=== PATIENT | male | born 1960 | race Caucasian/White ===

== ENCOUNTER → 2020-04-08 15:48 | Outpatient (BNVA) | payer OTHER, SELFPAY | PROVIDERS: Visit Provider Urology | DX: Z76.89 Persons encountering health services in other specified circumstances (principal) ==

== ENCOUNTER → 2021-02-22 09:29 | Outpatient (BNVA) | payer OTHER, SELFPAY | PROVIDERS: PCP Internal Medicine; Visit Provider Urology ==

== ENCOUNTER → 2021-06-09 08:43 | Outpatient (BNVA) | payer OTHER, SELFPAY | PROVIDERS: PCP Internal Medicine; Visit Provider Urology ==

== ENCOUNTER → 2021-08-23 13:07 | Outpatient (BNVA) | payer OTHER, SELFPAY | PROVIDERS: PCP Internal Medicine; Visit Provider Urology | DX: Z13.89 Encounter for screening for other disorder (principal) ==

== ENCOUNTER 2022-02-15 09:56 | Outpatient (REF) | payer OTHER, SELFPAY ==
--- NOTE | ~2022-02-15 | US_ITS ---
EXAMINATION: US RETROPERITONEAL LIMITED (RENAL ONLY) CLINICAL INFORMATION: Calculus of kidney. COMPARISON: None TECHNIQUE: Real-time imaging of the kidneys. FINDINGS: RIGHT KIDNEY: 10.5 x 5.0 x 5.4 cm (SAG x AP x TRV). The kidney is normal in size, contour, and echogenicity. Renal cortical thickness is normal. No calculi or focal parenchymal lesions. No hydronephrosis. LEFT KIDNEY: 9.9 x 5.1 x 5.2 cm (SAG x AP x TRV). The kidney is normal in size, contour, and echogenicity. Renal cortical thickness is normal. No calculi or focal parenchymal lesions. No hydronephrosis. US/US renal BI IMPRESSION: No significant sonographic abnormality.
== END 2022-02-15 09:57 | disposition home or self-care (01) ==
LOC: HO.HMGCX 09:56
PROVIDERS: PCP Internal Medicine; Visit Provider Urology
DX: N20.0 Calculus of kidney (principal)
CPT/HCPCS: 76775

== ENCOUNTER 2025-02-23 08:40 | Outpatient (AMB) | payer OTHER, MEDICAID, SELFPAY ==
[2025-02-23 09:00] VITALS: BP 183/86; PULSE 69; RESP 18; TEMP 36.6; O2SAT 97; BMI 24.1
--- NOTE | 2025-02-23 09:00 | A.OFFPC_ITS ---
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 Dependency Case Manager Required: No Accompanied by: Self / Same As Patient Allergies levofloxacin (LEVOFLOXACIN) Allergy (Mild, Verified 02/23/25 09:02) hives Penicillins (PENICILLINS) Allergy (Mild, Verified 02/23/25 09:02) RASH Sulfa (Sulfonamide Antibiotics) (SULFA (SULFONAMIDE ANTIBIOTICS)) Allergy (Mild, Verified 02/23/25 09:02) SKIN PEELS Medication List - Last Reconciled 02/23/25 by Seth Sargent MD Tobacco use date assessed: 02/23/25 Dental Screening Dental Screen Date: 02/23/25 HPI HPI Comments History of Present Illness0 Details History of Present Illness The patient is a 64-year-old male presenting for a physical examination. Health Maintenance: The patient is presenting for a physical after about a year and a half since his last medical visit and blood work. He has never had a colonoscopy for colon cancer screening and expresses fear of the procedure. He denies any family history of colon cancer. Tobacco Use Disorder: The patient has been smoking about one pack of cigarettes per day since he was 14 or 15 years old. His also smokes, which he notes makes quitting difficult. History of Hyperlipidemia: The patient reports a history of cholesterol problems many years ago, but his current status is unknown. History of Nephrolithiasis: The patient has a history of a kidney stone, which required a Sequeira catheter. He eventually passed the stone at home. He previously underwent a painful cystoscopy while awake. A urologist has seen a very small stone and recommended another procedure due to the patient's back pain complaints, but the patient is hesitant. Benign Prostatic Hyperplasia: The patient reports having a weak urinary stream. Back pain: The patient reports localized back pain that does not radiate. He has a remote history of falling from a balcony many years ago. Surgical History: - Sequeira catheter placement for a kidney stone - Cystoscopy Medications: The patient reports he is not currently taking any medications, including previously listed alfuzosin and omeprazole. Social History: - Tobacco Use: The patient smokes approx imately one pack of cigarettes per day and has been smoking since age 14 or 15. - Substance Use: The patient reports usi ng marijuana for the past year. 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 Family History: - The patient denies a family history of colon cancer. Diagnostic Results: - Vitals: Blood pressure was 183/86 mmHg . Past Medical History - History of hyperlipidemia - History of fall from a balcony - History of nephrolithiasis - Benign prostatic hyperplasia Health Maintenance - The patient has not seen a doctor or h ad blood work in approximately one and a half years. - Colon cancer screening was discussed; the patient has never had a colonoscopy and opted for a Cologuard test. - Smoking cessation was discussed, with options such as patches and gum offered for when the patient is ready to quit. - Lab work was ordered for screening, in cluding a lipid panel, B12, folate, vitamin D, HIV, hepatitis B, and hepatitis C. [facility] Medical History (Updated 02/23/25 @ 09:30 by Seth Sargent MD) Hyperlipidemia Tobacco use disorder Bladder outlet obstruction Erectile dysfunction due to arterial insufficiency Urethral stricture Surgical History History of surgery Social History Household Members: Spouse and Children Housing: House Alcohol intake: current Patient Tobacco Use Status: Current everyday Tobacco user Cigarettes Per Day: 20 Years Smoked: 45 e-Cigarette/Vaping Use: Never Used Cognitive needs: No Hearing needs: No Vision needs: No Questionnaire AUDIT C Alcohol Use Questionnaire (AUDIT-C) 1. How often do you have a drink containing alcohol?: Monthly or less 2. How many drinks containing alcohol do you have on a typical day when you are drinking?: 1 or 2 3. How often do you have six or more drinks on one occasion?: Never Total Score: 1 Review of Systems Narrative Review of Systems - Genitourinary: Reports a weak urinary stream. - Gastrointestinal: Reports normal bowel movements without pain. - Musculoskeletal: Reports localized back pain. - Constitutional/Neurological: Reports good sleep. 10-point ROS reviewed and negative except as noted in HPI Physical exam (Primary Care) Vital Signs: Last Vital Signs Temp 97.8 F 02/23/25 09:00 Pulse 69 02/23/25 09:00 Resp 18 02/23/25 09:00 BP 183/86 H 02/23/25 09:00 Pulse Ox 97 02/23/25 09:00 Oxygen Delivery Method Room Air 02/23/25 09:00 BMI result Body Mass Index 24.1 Tobacco/Smoking Status: Tobacco use Status Tobacco use date assessed 02/23/25 02/23/25 09:03 Patient Tobacco Use Status Current everyday Tobacco 02/23/25 09:01 e-Cigarette/Vaping Use Never Used 02/23/25 09:03 Narrative Physical Exam General: Well-appearing, in no acute distress. Vital signs: Blood pressure is elevated at 183/86. HEENT: Normocephalic, atraumatic. PERRLA, EOMI. Conjunctiva clear, sclera anicteric. Oropharynx clear, mucous membranes moist. TMs intact bilaterally. Neck: Supple, no lymphadenopathy, no thyromegaly, no JVD or carotid bruits. Cardiovascular: RRR, normal S1/S2, no murmurs, rubs, or gallops. Peripheral pulses 2+ and symmetric. No edema. Respiratory: Lungs clear to auscultation bilaterally, no wheezes, rales, or rhonchi. Normal effort. Abdomen: Soft, non-tender, non-distended. Normoactive bowel sounds. No hepatosplenomegaly, no masses. MSK: Full range of motion, no joint swelling or deformity. Normal gait. Skin: Warm, dry, intact. No rashes, lesions, or pallor. Neuro: Alert and oriented x3. Cranial nerves II-XII intact. Strength 5/5 throughout. Sensation intact. Reflexes 2+ symmetric. Normal coordination and gait. Psych: Appropriate mood and affect. Normal judgment and insight. Coding Level of Care Code New Pt Level 4 (76258) Diagnoses Nephrolithiasis N20.0 BPH w urinary obs/LUTS N40.1; N13.8 Tobacco use disorder F17.200 Hyperlipidemia E78.5 Elevated blood pressure reading R03.0 Back pain M54.9 Assessment & Plan Assessment & Plan (1) Nephrolithiasis: Code(s): N20.0 - Calculus of kidney Category: Medical (2) BPH w urinary obs/LUTS: Code(s): N40.1 - Benign prostatic hyperplasia with lower urinary tract symptoms; N13.8 - Other obstructive and reflux uropathy Category: Medical (3) Tobacco use disorder: Code(s): F17.200 - Nicotine dependence, unspecified, uncomplicated Category: Medical (4) Hyperlipidemia: Code(s): E78.5 - Hyperlipidemia, unspecified Category: Medical (5) Elevated blood pressure reading: Code(s): R03.0 - Elevated blood-pressure reading, without diagnosis of hypertension (6) Back pain: Code(s): M54.9 - Dorsalgia, unspecified Plan Consent The patient provided verbal consent to record the session. The alternatives for colon cancer screening, including an invasive colonoscopy and the non-invasive Cologuard test, were discussed. The process for the Cologuard test, which involves collecting a stool specimen at home and mailing it for analysis, was explained. The patient verbally consented to proceed with the Cologuard test. Patient was informed and verbally consented to the use of an ambient scribe for clinic note documentation during this visit. Plan 1. Adult Physical Examination - The patient will undergo comprehensive lab testing today, to include a lipid panel, vitamin B12, folate, vitamin D, HIV, hepatitis B, and hepatitis C. - A follow-up visit is scheduled in two weeks to review the results of all diagnostic tests and determine the next steps in management. 2. Tobacco Use Disorder - Smoking cessation was discussed, and the patient was informed that options like patches and gum are available when he is ready to quit. 3. Elevated Blood Pressure - The patient's blood pressure will be rechecked with proper technique. - Blood pressure will be monitored at the next visit, with consideration for sending the patient home with a monitoring kit if readings remain elevated. 4. Screening For Malignant Neoplasm Of Colon - A Cologuard test has been ordered for colon cancer screening. - The patient will receive the test kit in the mail, complete it at home, and send the specimen back for analysis. 5. Benign Prostatic Hyperplasia And History Of Nephrolithiasis - The patient has chosen to defer further urologic evaluation for his back pain and urinary symptoms until after the current primary care workup is completed. Discussion Notes I discussed with the patient the plan to establish care with a comprehensive physical exam and labs. I ordered a full panel of blood work to get an overall picture of his health, including lipids, vitamins, and infectious disease screening. We discussed options for colon cancer screening, and given his aversion to colonoscopy, I recommended and he agreed to the Cologuard test. I explained that the kit would be mailed to him and detailed the simple process for collecting and returning the specimen. Regarding his elevated blood pressure of 183/86, I noted that the measurement technique may have been incorrect and that we would recheck it and monitor it before considering treatment. I also addressed his long-standing smoking habit, offering support and treatment options like patches or gum for when he is ready to quit. We agreed to a follow- up visit in two weeks to review all results and decide on the next steps. Patient Instructions - Please proceed to the lab today to have your blood drawn for the ordered tests. - You will receive a Cologuard test kit in the mail. Follow the instructions to collect a stool sample and mail it back using the provided packaging. - Come back to the clinic in two weeks to discuss your lab results. - Let me know when you feel ready to quit smoking, and we can provide you with aids like patches or gum. - Your blood pressure was high today, but we will recheck it and monitor it at your next visit. Medical Decision Making The patient is a 64-year-old male presenting for an overdue physical examination to establish care. The approach is to obtain a comprehensive baseline of his health status through extensive lab work, including screening for hyp erlipidemia, vitamin deficiencies, and infectious diseases. His blood pressure was significantly elevated at 183/86 mmHg; however, given the potential for improper measurement technique, the plan is to re-measure and monitor before initiating antihypertensive therapy. For colorectal cancer screening, the patient has never been screened and expressed anxiety about an invasive colonoscopy. Therefore, Cologuard was offered as a suitable, non-invasive alternative, to which the patient agreed. The patient has a history of nephrolithiasis and related symptoms, with a pending urology evaluation, but he prefers to await the results of this primary care workup before proceeding, which is a reasonable course of action. Given his long-standing history of heavy tobacco use, smoking cessation was counseled as a critical component of his long-term health management. A follow-up in two weeks will allow for a thorough review of all results and formulation of a consolidated, long-term care plan. Total time spent caring for the patient today was 30 minutes. This includes time spent before the visit reviewing the chart, time spent documenting, and time spent reviewing laboratory results, diagnostic imaging, medications, performing a medically necessary evaluation, counseling on diagnoses, care coordination. Orders: Orders Comprehensive Met. Panel Today Z13.9 - Encounter for screening, unspecified Hemoglobin A1c Today Z13.9 - Encounter for screening, unspecified Hepatitis B Surface Antigen Today Z13.9 - Encounter for screening, unspecified Hepatitis C Antibody Today Z13.9 - Encounter for screening, unspecified HIV Ab/Ag Today Z13.9 - Encounter for screening, unspecified Magnesium Today Z13.9 - Encounter for screening, unspecified Vitamin D 1,25 dihydroxy Today Z13.9 - Encounter for screening, unspecified Complete Blood Count Auto Diff Today Z13.9 - Encounter for screening, unspecified Hepatitis B Surface Antibody Today Z13.9 - Encounter for screening, unspecified Lipid Panel Today Z13.9 - Encounter for screening, unspecified Microalbumin, Random (w Creat) Today Z13.9 - Encounter for screening, unspecified UA CC w/rflx Micro + Cult Today Z13.9 - Encounter for screening, unspecified Vitamin B12 and Folate Today Z13.9 - Encounter for screening, unspecified Referrals Cologuard Test Z12.11 - Encounter for screening for malignant neoplasm of colon, Z12.12 - Encounter for screening for malignant neoplasm of rectum
--- OUTSIDE RECORDS SUMMARY | 2025-02-23 09:06 | XMS_ITS ---
Author Name [facility] Organization Unknown Care Team Organization Name Specialty Phone Email Start Date End Da te [facility] Ryan Ku Primary Care 02/27/2022 12/09/19 24
--- OUTSIDE RECORDS SUMMARY | 2025-02-23 09:06 | XMS_ITS | Encounter Summary ---
Author Organization [facility] Address [address] [place] [address] Care Team Providers Care Osteology Teacher Name Role Phone Ryan Ku MD Primary Care Provider [phone] Encounter Details Date Type Department Care Team (Late st Contact Info) Description 01/11/[address] [facility] - Main Lab [address] [facility] [place] [id number] Taco Bravo MD [address] [facility] [address] [place] [address] Urinary tract infection, site not specified; Gross hematuria Social History Tobacco Use Types Packs/Day Years Used Date Smoking Tobacco: Every Day Cigarettes Smokeless Tobacco: Never Alcohol Use Standard Drinks/Week Comments Yes 0 (1 standard drink = 0.6 oz pur e alcohol) Sex and Gender Information Value Date Recorded Sex Assigned at Not on file Legal Sex Male 7:34 PM EST Gender Identity Not on file Sexual Orientation Not on file documented as of this encounter Plan of Treatment Not on file documented as of this encounter Procedures Procedure Name Priority Date/Time Associated Diagnosis Comments CULTURE URINE Routine 01/11/2025 11:15 AM EDT Urinary tract infection, site not specified Gross hematuria documented in this encounter Results * Culture urine (01/11/2025 11:15 AM EDT) Culture, Urine No growth 01/12/2025 10:29 AM EDT [facility] Urine Urine specimen obtained by clean catch procedure / Unknown Non-blood Collection / Unknown 01/11/2025 11:15 AM EDT 01/11/2025 1:52 PM EDT us Taco Bravo MD LAB MICROBIOLOGY - GENERAL ORDER NIVIA Final Result [facility] [address] [place] [address], documented in this encounter Visit Diagnoses Diagnosis Urinary tract infection, site not specified Gross hematuria documented in this encounter Care Teams Osteology Teacher Relationship Specialty Start Date End Date Ryan Ku MD [address] [place] [id number] PCP - General Internal Medicine 12/22/24 documented as of this encounter
--- OUTSIDE RECORDS SUMMARY | 2025-02-23 09:06 | XMS_ITS | Clinical Summary ---
[facility] Address [address] [place] [phone] Phone Care Team Providers Care Adult Care Provider Name Role Phone Ryan Ku MD Primary Care Provider [phone] Encounters Date Type Department Care Team Description 01/19/2025 Lab Requisition [facility] [address] [place] [address] Taco Bravo Gross hematuria 01/11/2025 Lab Requisition [facility] [address] [place] [address] Taco Bravo MD Urinary tract infection, site not specified; Gross hematuria from Last 3 Months Social History Tobacco Use Types Packs/Day Years Used Date Smoking Tobacco: Every Day Cigarettes Smokeless Tobacco: Never Alcohol Use Standard Drinks/Week Comments Yes 0 (1 standard drink = 0.6 oz pur e alcohol) Sex and Gender Information Value Date Recorded Sex Assigned at Not on file Legal Sex Male 7:34 PM EST Gender Identity Not on file Sexual Orientation Not on file Obstetrics History Last Filed Vital Signs Vital Sign Reading Time Taken Comments Blood Pressure 158/73 08/21/2023 9:05 AM EDT Pulse 64 08/21/2023 9:05 AM EDT Temperature - - Respiratory Rate - - Oxygen Saturation - - Inhaled Oxygen Concentration - - Weight - - Height - - Body Mass Index - - Plan of Treatment Health Maintenance Due Date Last Done Comments Colorectal Cancer Screening: Colonoscopy 1958 DTaP,Tdap,and Td Vaccines (1 - Tdap) 1977 Hepatitis A Vaccines (1 of 2 - Risk 2-dose series) 1977 Pneumococcal Vaccine: 50+ Ye ars (1 of 2 - PCV) 1977 Zoster Vaccines (1 of 2) 2008 Abdominal Aortic Aneurysm (A AA) Screen 03/31/2022 Cholesterol Screening (Lipid Panel) 03/31/2022 Hepatitis C Screening 03/31/2022 Medicare Annual Wellness Visit 03/31/2022 Social Influencers of Health Screening 03/31/2022 Falls Risk Assessment 07/24/2023 Depression Screening 04/22/2024 COVID-19 Vaccine (1 - 2023-2 5 season) 2024 Influenza Vaccine (#1) 2024 RSV Immunization Adult Patie nts (1 - 1-dose 75+ series) 2033 HIB Vaccines Aged Out No longer eligi ble based on patient's age to complete this topic HPV Vaccines Aged Out No longer eligi ble based on patient's age to complete this topic Hepatitis B Vaccines Aged Out No long er eligible based on patient's age to complete this topic IPV Vaccines Aged Out No longer eligi ble based on patient's age to complete this topic MMR Vaccines Aged Out No longer eligi ble based on patient's age to complete this topic Meningococcal ACWY Vaccine Aged Out N o longer eligible based on patient's age to complete this topic Meningococcal B Vaccine Aged Out No l onger eligible based on patient's age to complete this topic RSV Immunization Patients Un alexis 20 months Aged Out No longer eligible b ased on patient's age to complete this topic Varicella Vaccines Aged Out No longer eligible based on patient's age to complete this topic Procedures Procedure Name Priority Date/Time Associated Diagnosis Comments CULTURE URINE Routine 01/11/2025 11:15 AM EDT Urinary tract infection, site not specified Gross hematuria NON-GYNECOLOGIC CYTOLOGY Routine 01/11/2025 12:00 AM EDT Gross hematuria from Last 3 Months Results * Culture urine (01/11/2025 11:15 AM EDT) Culture, Urine No growth 01/12/2025 10:29 AM EDT [facility] Urine Urine specimen obtained by clean catch procedure / Unknown Non-blood Collection / Unknown 01/11/2025 11:15 AM EDT 01/11/2025 1:52 PM EDT us aTco Bravo MD LAB MICROBIOLOGY - GENERAL ORDER NIVIA Final Result [facility] [address] [place] [address], [place] [phone] * Non-gynecologic cytology (01/11/2025 12:00 AM EDT) Final Diagnosis A. Urine, Voided, [id number]: Negative for high grade urothelial carcinoma. Results of UroVysion fluorescence in situ hybridization (FISH) testing: CEP3: Normal CEP7: Normal CEP17: Normal LSI 9p21: Normal Interpretation: Normal profile Controls stained appropriately. Note: The results are intended as a screening device and should be interpreted in association with other clinical and pathological findings. 02/04/2025 4:09 PM EDT [facility] at 1609 EDT Specimen A Adequacy Satisfactory for evaluation 02/04/2025 4:09 PM T [facility] Clinical Information R31.0 Gross hematuria Urine Cytology/FISH (now) 02/04/2025 4:09 PM T [facility] Gross Description A. Urine, Voided, [id number]: Received one ThinPrep slide for cytology and one ThinPrep slide for UroVysion FISH 02/04/2025 4:09 PM T [facility] Disclaimer Unless otherwise specified, all tissue is 10% NB formalin fixed and paraffin embedded. Technical pathology services provided by [facility] at [address] [place] [address] [address], [place] [address] (CLIA #[id number]/Susie Enrique MD, Residence Leasing Agent) 02/04/2025 4:09 PM EDT [facility] Urine Urine specimen from urethra / Unknown 01/11/2025 01/19/2025 10:35 AM EDT us Taco Shelly LAB CYTOLOGY ORDERABLES Final Re sult [facility] [address] [place] [address], [place] [phone] from Last 3 Months Insurance MEDICAID - [place] MEDICARE AET[employer] Care Teams Adult Care Provider Relationship Specialty Start Date End Date Ryan Ku MD [address] [place] [address] PCP - General Internal Medicine 12/22/24
--- OUTSIDE RECORDS SUMMARY | 2025-02-23 09:06 | XMS_ITS | Encounter Summary ---
Author Organization [facility] Address [address] [place] [address] Care Team Providers Care Flow Match Sofa Cutter Name Role Phone Ryan Ku MD Primary Care Provider [phone] Encounter Details Date Type Department Care Team (Late st Contact Info) Description 01/19/2025 Lab Requisition [facility] - Main Lab [address] [place] [phone] Taco Bravo [address] [place], [place] [phone] Gross hematuria Social History Tobacco Use Types [...] Procedure Name Priority Date/Time Associated Diagnosis Comments NON-GYNECOLOGIC CYTOLOGY Routine 01/11/2025 12:00 AM EDT Gross hematuria documented in this encounter Results * Non-gynecologic cytology (01/11/2025 12:00 AM EDT) Final Diagnosis A. Urine, Voided, [id number]: Negative for high grade urothelial carcinoma. Results of UroVysion fluorescence in situ hybridization (FISH) testing: CEP3: Normal CEP7: Normal CEP17: Normal LSI 9p21: Normal Interpretation: Normal profile Controls stained appropriately. Note: The results are intended as a screening device and should be interpreted in association with other clinical and pathological findings. 02/04/2025 4:09 PM EDT [facility] at 1609 EDT Specimen A Adequacy Satisfactory for evaluation 02/04/2025 4:09 PM EDT [facility] Clinical Information R31.0 Gross hematuria Urine Cytology/FISH (now) 02/04/2025 4:09 PM EDT [facility] Gross Description A. Urine, Voided, [id number]: Received one ThinPrep slide for cytology and one ThinPrep slide for UroVysion FISH 02/04/2025 4:09 PM EDT [facility] Disclaimer Unless otherwise specified, all tissue is 10% NB formalin fixed and paraffin embedded. Technical pathology services provided by [facility] at [address], [place] [address] (CLIA #[id number]/Susie Enrique MD, Tetryl Nitrator Operator) 02/04/2025 4:09 PM EDT [facility] Urine Urine specimen from urethra / Unknown 01/11/2025 01/19/2025 10:35 AM EDT us Taco Bravo LAB CYTOLOGY ORDERABLES Final Re sult [facility] [address] [place] [address], documented in this encounter Visit Diagnoses Diagnosis Gross hematuria documented in this encounter Care Teams Flow Match Sofa Cutter Relationship Specialty Start Date End Date Ryan Ku MD [address] [place] [id number] PCP - General Internal Medicine 12/22/24 documented as of this encounter
[2025-02-23 09:32] VITALS: BP 180/85
[2025-02-23 09:34] VITALS: BP 180/85
== END 2025-02-23 09:33 | disposition home or self-care (01) ==
PROVIDERS: PCP Internal Medicine; Visit Provider Student in an Organized Health Care Education/Training Program
DX: N20.0 Calculus of kidney (principal); N40.1 Benign prostatic hyperplasia with lower urinary tract symptoms; N13.8 Other obstructive and reflux uropathy; F17.200 Nicotine dependence, unspecified, uncomplicated; E78.5 Hyperlipidemia, unspecified; R03.0 Elevated blood-pressure reading, without diagnosis of hypertension; M54.9 Dorsalgia, unspecified

== ENCOUNTER 2025-02-24 08:44 | Outpatient (REF) | payer OTHER, MEDICAID, SELFPAY ==
--- OUTSIDE RECORDS SUMMARY | 2025-02-24 09:13 | XMS_ITS | Encounter Summary ---
Author Organization [employer] Address [address] [place] [address] Care Team Providers Care Refinery Operator Helper Name Role Phone Ryan Ku MD Primary Care Provider [phone] Encounter Details Date Type Department Care Team (Late st Contact Info) Description 01/11/2025 Lab Requisition [facility] - Main Lab [address] [facility] [place] [phone] Taco Bravo MD [address] [facility] [address] [place] [address] Urinary tract infection, site not specified; Gross [...] Urine No growth 01/12/2025 10:29 AM EDT [facility] Urine Urine specimen obtained by clean catch procedure / Unknown Non-blood Collection / Unknown 01/11/2025 11:15 AM EDT 01/11/2025 1:52 PM EDT us Taco Bravo MD LAB MICROBIOLOGY - GENERAL ORDER NIVIA Final Result [facility] [address] [place] [address], documented in this encounter Visit Diagnoses Diagnosis Urinary tract infection, site not specified Gross hematuria documented in this encounter Care Teams Refinery Operator Helper Relationship Specialty Start Date End Date Ryan Ku MD [address] [place] [id number] PCP - General Internal Medicine 12/22/24 documented as of this encounter
--- OUTSIDE RECORDS SUMMARY | 2025-02-24 09:13 | XMS_ITS | Clinical Summary ---
Author Organization [facility] Address [address] [place] [phone] Phone Care Team Providers Care Master Ocean Yacht Name Role Phone Ryan Ku MD Primary Care Provider [phone] Encounters Date Type Department Care Team Description 01/19/2025 Lab Requisition [facility] [address] [place] [address] Taco Bravo Gross hematuria 01/11/2025 Lab Requisition [facility] [address] [place] [address] Taco Bravo MD Urinary tract [...] Urine No growth 01/12/2025 10:29 AM EDT [facility] Urine Urine specimen obtained by clean catch procedure / Unknown Non-blood Collection / Unknown 01/11/2025 11:15 AM EDT 01/11/2025 1:52 PM EDT us Taco Bravo MD LAB MICROBIOLOGY - GENERAL ORDER NIVIA Final Result [facility] [address] [place] [address], [place] [phone] * Non-gynecologic cytology (01/11/2025 12:00 AM EDT) Final Diagnosis A. Urine, Voided, [id number]: Negative for high grade urothelial carcinoma. Results of [employer] fluorescence in situ hybridization (FISH) testing: CEP3: Normal CEP7: Normal CEP17: Normal LSI 9p21: Normal Interpretation: Normal profile Controls stained appropriately. Note: The results are intended as a screening device and should be interpreted in association with other clinical and pathological findings. 02/04/2025 4:09 PM EDT [facility] at 1609 EDT Specimen A Adequacy Satisfactory for evaluation 02/04/2025 4:09 PM T [facility] Clinical Information R31.0 Gross hematuria Urine Cytology/FISH (now) 02/04/2025 4:09 PM T [facility] Gross Description A. Urine, Voided, [id number]: Received one ThinPrep slide for cytology and one ThinPrep slide for UroVysion FISH 02/04/2025 4:09 PM T [facility] Disclaimer Unless otherwise specified, all tissue is 10% NB formalin fixed and paraffin embedded. Technical pathology services provided by [facility] at [address] [place] [address] [address], [place] [address] (CLIA #[id number]/Susie Enrique MD, B2B Sales Professional) 02/04/2025 4:09 PM EDT [facility] Urine Urine specimen from urethra / Unknown 01/11/2025 01/19/2025 10:35 AM EDT us Taco Shelly LAB CYTOLOGY ORDERABLES Final Re sult [facility] ([facility] [place] [address] [place] [address], [place] [phone] from Last 3 Months Insurance MEDICAID - [place] MEDICARE AET[employer] Care Teams Master Ocean Yacht Relationship Specialty Start Date End Date Ryan Ku MD [address] [place] [address] PCP - General Internal Medicine 12/22/24
--- OUTSIDE RECORDS SUMMARY | 2025-02-24 09:13 | XMS_ITS | Encounter Summary ---
Author Organization [employer] Address [address] [place] [address] Care Team Providers Care Stationary Engineer Refrigeration Name Role Phone Ryan Ku MD Primary Care Provider [phone] Encounter Details Date Type Department Care Team (Late st Contact Info) Description 01/19/2025 Lab Requisition [facility] - Main Lab [address] [place] [phone] Taco Bravo [address] [place], [place] [address] Gross hematuria Social History Tobacco Use Types [...] AM EDT) Final Diagnosis A. Urine, Voided, [id number]: Negative for high grade urothelial carcinoma. Results of UroVysion fluorescence in situ hybridization (FISH) testing: CEP3: Normal CEP7: Normal CEP17: Normal LSI 9p21: Normal Interpretation: Normal profile Controls stained appropriately. Note: The results are intended as a screening device and should be interpreted in association with other clinical and pathological findings. 02/04/2025 4:09 PM EDT [facility] at 1609 EDT Specimen A Adequacy Satisfactory for evaluation 02/04/2025 4:09 PM EDT [facility] Clinical Information R31.0 Gross hematuria Urine Cytology/FISH (now) 02/04/2025 4:09 PM EDT [facility] Gross Description A. Urine, Voided, [id number]: Received one ThinPrep slide for cytology and one ThinPrep slide for UroVysion FISH 02/04/2025 4:09 PM EDT [facility] Disclaimer Unless otherwise specified, all tissue is 10% NB formalin fixed and paraffin embedded. Technical pathology services provided by [facility] at [address], [place] [address] (CLIA #[id number]/Susie Enrique MD, Family Nurse) 02/04/2025 4:09 PM EDT [facility] Urine Urine specimen from urethra / Unknown 01/11/2025 01/19/2025 10:35 AM EDT us Taco Bravo LAB CYTOLOGY ORDERABLES Final Re sult [facility]) [facility] [address] [place] [address], documented in this encounter Visit Diagnoses Diagnosis Gross hematuria documented in this encounter Care Teams Stationary Engineer Refrigeration Relationship Specialty Start Date End Date Ryan Ku MD [address] [place] [id number] PCP - General Internal Medicine 12/22/24 documented as of this encounter
[2025-02-24 13:20] LABS: Appearance Urine Clear; Glucose Urine UA Negative (Negative); PH 6.0 (5.0-9.0); Specific Gravity - Urine 1.010 (1.005-1.025); UMIC TRIGGER UACC YES
[2025-02-24 13:33] LABS: MANUAL DIFF FLAG NO
[2025-02-24 13:37] LABS: Hematocrit 51.7 % (42.0-52.0); Hemoglobin 17.0 g/dl (14.0-18.0); Imm Gran Abs Auto 0.02 X10*3/uL (0.00-0.03); Imm Gran Pct Auto 0.3 % (0.0-0.4); Lymphocytes Absolute Auto 2.6 X10*3/uL (1.2-4.9); Mean Corpuscular HGB Conc 32.9 g/dl (31.0-36.0); Mean Corpuscular Hemoglobin 28.5 pg (27.0-33.0); Mean Corpuscular Volume 86.7 fL (80.0-98.0); NRBC Abs Auto 0.000 X10*3/uL (0.0-0.012); NRBC Pct Auto 0.0 /100WBC (0.0-0.2); Platelet Count 294 X10*3/uL (160-400); Red Blood Count 5.96 X10*6/uL (4.60-5.80); White Blood Count 7.3 X10*3/uL (4.8-10.8)
[2025-02-24 13:51] LABS: Hemoglobin A1C 151.8240 umol/L
[2025-02-24 14:19] LABS: Alanine Aminotransferase 10 U/L (0-40); Albumin Level 4.5 g/dL (3.5-5.0); Alkaline Phosphatase 112 U/L (39-117); Anion Gap 11 (12-20); Aspartate Amino Transferase 23 U/L (5-37); Blood Urea Nitrogen 15 mg/dL (9-16); Calcium 9.7 mg/dL (8.4-10.2); Carbon Dioxide 31 mmol/L (22-29); Chloride 106 mmol/L (96-108); Cholesterol 245 mg/dL (<200); Estimated Glomerular Filt Rate > 60; HDL Cholesterol 57 mg/dL (>40); Magnesium 2.3 mg/dL (1.6-2.6); Potassium 4.3 mmol/L (3.3-5.1); Sodium 144 mmol/L (135-145); Total Protein 7.9 g/dL (6.5-8.0); Triglycerides 148 mg/dL (<150)
[2025-02-24 14:21] LABS: Microalbum/Creatinine Ratio Ur 76.6 ug/mg cr (<30)
[2025-02-24 14:33] LABS: Folate 5.0 ng/mL (> or = 4.0); Vitamin B12 < 148 pg/mL (200-900)
[2025-02-25 08:10] LABS: HBS Num1 0.20 mIU/mL (0-7.99); HBsAGNum1 0.31 S/CO (0.00-0.99); HIV Num 1 0.06 S/CO (0.00-0.99); Hepatitis B Surface Antigen Negative (Negative); ~HepC Num1 0.15 S/CO (0.00-0.79); ~Hepatitis B Surface Antibody NONREACTIVE (Nonreactive); ~Hepatitis C Antibody Nonreactive (Nonreactive)
[2025-02-28 19:33] LABS: VITAMIN D (1,25 OH) D3 66 pg/mL; Vit D (1,25-Dihydroxy) Total 66 pg/mL (18-72); Vitamin D (1,25 OH) D2 <8 pg/mL
== END 2025-02-24 08:45 | disposition home or self-care (01) ==
LOC: HO.HKASLDS 08:44
PROVIDERS: PCP Student in an Organized Health Care Education/Training Program; Visit Provider Student in an Organized Health Care Education/Training Program
DX: Z11.4 Encounter for screening for human immunodeficiency virus [HIV] (principal); Z13.6 Encounter for screening for cardiovascular disorders; Z13.1 Encounter for screening for diabetes mellitus; Z13.89 Encounter for screening for other disorder
CPT/HCPCS: 36415; 80053; 80061; 81001; 82043; 82570; 82607; 82652; 82746; 83036; 83735; 85025; 86706; 86803; 87340; 87389

== ENCOUNTER 2025-03-10 09:55 | Outpatient (AMB) | payer OTHER, MEDICAID, SELFPAY ==
--- NOTE | 2025-03-10 09:57 | A.OFFPC_ITS ---
Vital Signs 03/10/25 09:58 Height 5 ft 9 in Weight 166 lb 2 oz BMI 24.5 BP 154/80 H Blood Pressure Location Rt brachial Position Sitting Pulse 69 Pulse Source Pulse Oximeter Temp 98.1 F Temp Source Oral Pulse Oximetry (%) 98 Oxygen Delivery Method Room Air Intake Visit Reasons: 2 wl lab review Accompanied by: Spouse Allergies levofloxacin (LEVOFLOXACIN) Allergy (Mild, Verified 03/10/25 09:58) hives Penicillins (PENICILLINS) Allergy (Mild, Verified 03/10/25 09:58) RASH Sulfa (Sulfonamide Antibiotics) (SULFA (SULFONAMIDE ANTIBIOTICS)) Allergy (Mild, Verified 03/10/25 09:58) SKIN PEELS Medication List - Last Reconciled 03/10/25 by Seth Sargent MD atorvastatin (Lipitor) 20 mg PO BEDTIME [blood pressure As directed] lisinopril 10 mg PO DAILY mecobalamin (vitamin B12) 1,000 mcg sublingual BEDTIME Tobacco use date assessed: 03/10/25 Fall risk assessment: No Falls in past year Last assessed Fall Risk: 03/10/25 Dental Screening Dental Screen Date: 03/10/25 Did you have a dental visit in the last 12 months?: No HPI HPI Comments History of Present Illness Details History of Present Illness The patient is a 64-year-old male presenting for a follow-up visit to review lab results and manage elevated blood pressure. Essential Hypertension: The patient has a history of elevated blood pressure, with a reading of 180/85 mmHg at his last visit. Today's reading is 154/80 mmHg. Recent urinalysis revealed proteinuria, suggesting the hypertension is affecting his kidney function. Hyperlipidemia: Recent lab work revealed elevated cholesterol levels, with a total cholesterol of 245 mg/dL (normal <200) and LDL cholesterol of 159 mg/dL (normal <100). His triglycerides were within normal limits at 148 mg/dL, and his HDL was good at 57. The patient reports a diet that includes frequent consumption of eggs. Vitamin B12 Deficiency: The patient reports feeling tired. Lab results show a low vitamin B12 level of 148, with the normal range being 200-900. Preventative Care: The patient has received a Cologuard kit for colon cancer screening and still needs to complete it. Surgical History: - No prior surgical history discussed. Medications: - The patient is not on any current medi cations. - Allergies include penicillin, levothyr oxine, and sulfa. Social History: - Nutrition: Reports eating eggs often. - Substance Use: Patient was advised not to check blood pressure after smoking, though current smoking status was not explicitly confirmed. Family History: - No specific medical conditions were di scussed regarding family history. Diagnostic Results: - Vitals: Blood pressure 154/80 mmHg. - Labs: - CBC: Platelets are normal. - CMP: Sodium, potassium, and calcium ar e normal. - Kidney function: Normal. - Liver function: Normal. - Glucose and Hemoglobin A1c: Normal, no evidence of prediabetes or diabetes. - Lipid Panel: Total cholesterol 245 mg/ dL, LDL 159 mg/dL, HDL 57, Triglycerides 148 mg/dL. - Vitamin B12: 148 (low). - Vitamin D and Folate: Normal. - Urinalysis: Positive for proteinuria. - Infectious Disease Screening: - Hepatitis B, Hepatitis C, and HIV: Neg ative. Past Medical History - Allergies to penicillin, levothyroxine , and sulfa. Health Maintenance - A Cologuard test for colon cancer scre ening has been provided to the patient for completion. - A referral to a registered dietitian w ill be made for nutritional counseling regarding diet and high cholesterol. [facility] Medical History (Updated 03/10/25 @ 10:59 by Seth Sargent MD) Vitamin B12 deficiency Hypertension Hyperlipidemia Tobacco use disorder Bladder outlet obstruction Erectile dysfunction due to arterial insufficiency Urethral stricture Surgical History History of surgery Family History (Updated 03/10/25 @ 10:08 by Peggy Page CMA) Father No problems noted. Mother Hypoglycemia Asthma Social History Household Members: Spouse and Children Housing: House Alcohol intake: current Patient Tobacco Use Status: Current everyday Tobacco user Cigarettes Per Day: 20 Years Smoked: 45 e-Cigarette/Vaping Use: Never Used service: No Current occupational status: retired Cognitive needs: No Hearing needs: No Vision needs: No Questionnaire PHQ-9 Over the last 2 weeks, how often have you been bothered by any of the following problems? 1. Little interest or pleasure in doing things: not at all 2. Feeling down, depressed, or hopeless: several days 3. Trouble falling or staying asleep, or sleeping too much: several days 4. Feeling tired or having little energy: several days 5. Poor appetite or overeating: not at all 6. Feeling bad about yourself - or that you are a failure or have let yourself or your family down: several days 7. Trouble concentrating on things, such as reading the newspaper or watching television: not at all 8. Moving or speaking so slowly that other people could have noticed. Or the opposite - being so fidgety or restless that you have been moving around a lot more than usual: not at all 9. Thoughts that you would be better off or of hurting yourself in some way: not at all Total score: 4 Depression Screening Interpretation: Negative Depression Screening Done: Yes Source: Developed by Drs. Pro Amanda, Shoshana Story, Fidencio Francois and colleagues, with an educational lizz from [employer]. Thrive Questionnaire Date Thrive assessed: 03/10/25 I am a: Patient What is your living situation today?: I have a steady place to live Within the past 12 months, did the food you bought not last and you didn't have the money to get more?: Never true Within the past 12 months, did you worry whether your food would run out before you got money to buy more?: Never true Do you have trouble paying for medicines?: No Do you have trouble getting transportation to medical appointments?: No Do you have trouble paying your heating and electricity bill?: Yes Do you have trouble taking care of your child, family member or friend?: No Are you currently unemployed and looking for a job?: No Are you interested in more education?: No Please select the resources that you would like help with: Utilities Currently or been in a relationship where the following occur: No concerns reported THRIVE Score: 1 AUDIT C Alcohol Use Questionnaire (AUDIT-C) 1. How often do you have a drink containing alcohol?: Monthly or less 2. How many drinks containing alcohol do you have on a typical day when you are drinking?: 1 or 2 3. How often do you have six or more drinks on one occasion?: Never Total Score: 1 EMMA-7 AMB Questionnaire EMMA-7 Date EMMA - 7 assessed: 03/10/25 Feeling nervous, anxious, or on edge: 1 = Several days Not being able to stop or control worryin = Several days Worrying too much about different things: 0 = Not at all Trouble relaxin = Not at all Being so restless that it is hard to sit still: 1 = Several days Becoming easily annoyed or irritable: 0 = Not at all Feeling afraid as if something awful might happen: 1 = Several days Total EMMA-7 score (0-4 normal; 5-9 mild; 10-14 moderate; 15-21 severe): 4 Source: Developed by Drs. Pro Amanda, Shoshana Story, Fidencio Francois and colleagues, with an educational lizz from [employer]. Review of Systems Narrative Review of Systems - Constitutional: Reports fatigue. - Psychiatric: Reports feeling internally nervous, shaky, and down yesterday. - Neurological: Acknowledges that paresthesias can be a symptom of low B12 but does not explicitly confirm having them. 10-point ROS reviewed and negative except as noted in HPI Physical exam (Primary Care) Vital Signs: Last Vital Signs Temp 98.1 F 03/10/25 09:58 Pulse 69 03/10/25 09:58 BP 154/80 H 03/10/25 09:58 Pulse Ox 98 03/10/25 09:58 Oxygen Delivery Method Room Air 03/10/25 09:58 BMI result Body Mass Index 24.5 Tobacco/Smoking Status: Tobacco use Status Tobacco use date assessed 03/10/25 03/10/25 09:59 Patient Tobacco Use Status Current everyday Tobacco 03/10/25 09:59 e-Cigarette/Vaping Use Never Used 03/10/25 09:59 PHQ-9: PHQ-9 Score PHQ-9: Total score 4 03/10/25 10:35 Depression Screening Interpretation: Negative Thrive Assessment: Date of Thrive Assessment Date Thrive assessed 03/10/25 03/10/25 09:59 Currently or been in a relationship where the following occur: No concerns reported Narrative Physical Exam General: Well-appearing, in no acute distress. Vital signs: Blood pressure is elevated at 154/80. HEENT: Normocephalic, atraumatic. PERRLA, EOMI. Conjunctiva clear, sclera anicteric. Oropharynx clear, mucous membranes moist. TMs intact bilaterally. Neck: Supple, no lymphadenopathy, no thyromegaly, no JVD or carotid bruits. Cardiovascular: RRR, normal S1/S2, no murmurs, rubs, or gallops. Peripheral pulses 2+ and symmetric. No edema. Respiratory: Lungs clear to auscultation bilaterally, no wheezes, rales, or rhonchi. Normal effort. Abdomen: Soft, non-tender, non-distended. Normoactive bowel sounds. No hepatosplenomegaly, no masses. MSK: Full range of motion, no joint swelling or deformity. Normal gait. Skin: Warm, dry, intact. No rashes, lesions, or pallor. Neuro: Alert and oriented x3. Cranial nerves II-XII intact. Strength 5/5 throughout. Sensation intact. Reflexes 2+ symmetric. Normal coordination and gait. Psych: Reports feeling nervous and tired, but declines referral to mental health. Appropriate mood and affect. Normal judgment and insight. Office Procedures Flu Questionnaire Does the patient have a severe egg allergy?: No Does the patient have severe life threatening allergies?: No Does the patient have a fever or illness today?: No Has the patient ever had Guillain-Bighorn Syndrome?: No Has the patient ever had any past reaction to a flu shot?: No Immunizations Fluarix [id number] (PF) 45 mcg (15 mcg x 3)/0.5 mL IM syringe Performing Provider: Seth Sargent MD [place] [facility] Documented (not given) by: Peggy Page CMA on 03/10/25 10:09 Reason Not Given: Patient Refused Coding Level of Care Code Est Pt Level 3 (74328) Diagnoses Hypertension I10 Hyperlipidemia E78.5 Tobacco use disorder F17.200 Vitamin B12 deficiency E53.8 Assessment & Plan Assessment & Plan (1) Hypertension: Code(s): I10 - Essential (primary) hypertension Category: Medical (2) Hyperlipidemia: Code(s): E78.5 - Hyperlipidemia, unspecified Category: Medical (3) Tobacco use disorder: Code(s): F17.200 - Nicotine dependence, unspecified, uncomplicated Category: Medical (4) Vitamin B12 deficiency: Code(s): E53.8 - Deficiency of other specified B group vitamins Category: Medical Plan Consent The risks, benefits, and alternatives of initiating treatment for hypertension and hyperlipidemia were discussed with the patient. For lisinopril, the patient was counseled on the major side effect of angioedema, with instructions to stop the medication and go to the emergency room if swelling of the lips or face occurs. For atorvastatin, potential side effects such as muscle aches were reviewed, along with alternatives including dose reduction, switching to another medication class, or using a supplement. The patient acknowledged understanding and verbally consented to begin both medications. Patient was informed and verbally consented to the use of an ambient scribe for clinic note documentation during this visit. Plan 1. Essential Hypertension - Initiate lisinopril 10 mg once daily. - A 30-day supply will be prescribed initially. - Provide a prescription for a home blood pressure cuff. - Instructed the patient to monitor and log blood pressure readings twice daily, once in the morning and once at night. - Patient counseled on proper technique for accurate blood pressure measurement. - Educated on the signs of angioedema (swelling of lips/face) and advised to seek emergency care if it occurs. - Follow up in two weeks to review blood pressure log and assess medication tolerance and efficacy. 2. Hyperlipidemia - Initiate atorvastatin 20 mg to be taken at night. - Discussed modifying diet, including reducing egg consumption. - Counseled on potential side effects, such as muscle aches. - A referral will be placed for a registered dietitian to provide dietary counseling. 3. Vitamin B12 Deficiency - Prescribe oral vitamin B12 supplementation as the patient preferred pills over injections. 4. Preventative Care - Advised patient to complete the Cologuard test that he has at home. Discussion Notes I reviewed the patient's lab results with him and his . I explained that his blood pressure remains elevated at 154/80 mmHg and that his urine test shows some protein, indicating the hypertension is affecting his kidneys. For this reason, I recommended starting lisinopril 10 mg, which will help lower his blood pressure and protect his kidneys. I also discussed his high cholesterol levels, specifically a total cholesterol of 245 and LDL of 159. I explained that the combination of high blood pressure and high cholesterol increases his cardiovascular risk, and I recommended starting atorvastatin 20 mg for heart and vessel protection. We discussed diet, and a referral to a registered dietitian will be made. I informed him that his vitamin B12 level is low, which could be contributing to his fatigue. After discussing injections versus pills, the patient opted for oral B12 supplements, which I will prescribe. I counseled the patient on the potential side effects of the new medications, including angioedema with lisinopril and muscle aches with atorvastatin, and provided clear instructions on when to seek emergency care. I provided a prescription for a home blood pressure cuff and detailed instructions on how to monitor his readings. The patient understood the plan and will follow up in two weeks. Patient Instructions - You will start three new medications: lisinopril for blood pressure, atorvastatin for cholesterol, and a vitamin B12 supplement. - Take lisinopril 10 mg in the morning. - Take atorvastatin 20 mg at night. - If you have any swelling of your lips or face, stop taking lisinopril and go to the emergency room right away. - distribution operations supervisor a blood pressure cuff from the [employer]. - Check your blood pressure twice a day (morning and evening) and write down the numbers to bring to your next appointment. - When checking your blood pressure, sit down and relax for 10 minutes beforehand, with your feet flat on the floor and your arm resting on a table at heart level. - Do not check your blood pressure right after smoking or eating. - You will be contacted by a registered dietitian to help you with your diet. - Please complete the Cologuard (stool test) kit you have at home. - Please return for a follow-up appointment in two weeks. Medical Decision Making This is a 64-year-old male who presents for a review of recent lab work and management of his health. His blood pressure remains elevated at 154/80 mmHg, despite a previous reading of 180/85 mmHg. Urinalysis is notable for proteinuria, indicating that his uncontrolled hypertension is impacting renal function. Therefore, I have initiated lisinopril, an ISAIAS inhibitor, for its dual benefit of blood pressure control and renal protection. His lipid panel shows hyperlipidemia, with an LDL of 159 mg/dL and total cholesterol of 245 mg/dL. Given the co-occurrence of hypertension, which increases his overall cardiovascular risk, initiation of a statin therapy is warranted for primary prevention. I have prescribed atorvastatin 20 mg. Labs also revealed a significant vitamin B12 deficiency (level of 148), which likely contributes to his reported symptoms of fatigue. The patient preferred oral supplementation over injections, so I have prescribed B12 pills. The patient was educated on all new medications, potential side effects, and warning signs. He will monitor his blood pressure at home, and I will see him in two weeks to evaluate his response to treatment and adjust the plan as needed. A referral to a registered dietitian will also be placed to support lifestyle modification. Total Time Statement 20min Total time spent caring for the patient today includes pre-visit chart review, documentation, review of laboratory and diagnostic imaging results, medication reconciliation, medically necessary evaluation, counseling on diagnoses, care coordination, ordering appropriate tests and medications, review of tests performed by other providers, reporting test results to the patient, and communication with other healthcare providers. Orders: Orders Influenza [id number] Immunization Today Z23 - Encounter for immunization Medications: New atorvastatin (Lipitor) 20 mg PO BEDTIME 90 tabs 0RF mecobalamin (vitamin B12) place tablet under tongue and allow to dissolve for at least30 secs before swallowing 1,000 mcg sublingual BEDTIME 90 tabs 0RF lisinopril 10 mg PO DAILY 30 tabs 0RF I10 - Essential (primary) hypertension [blood pressure] As directed 1 ea 0RF I10 - Essential (primary) hypertension
[2025-03-10 09:58] VITALS: BP 154/80; PULSE 69; TEMP 36.7; O2SAT 98; BMI 24.5
--- OUTSIDE RECORDS SUMMARY | 2025-03-10 18:35 | XMS_ITS | Encounter Summary ---
Author Organization [employer] Address [address] [place] [address] Care Team Providers Care Program Instructor Name Role Phone Ryan Ku MD Primary Care Provider [phone] Encounter Details Date Type Department Care Team (Late st Contact Info) Description 01/11/2025 Lab Requisition [facility] - Main Lab 299 [facility] [place] [phone] Taco Bravo MD [address] [facility] [address] [place] [address] Urinary tract infection, site not specified; Gross [...] Urine No growth 01/12/2025 10:29 AM EDT [facility] Urine Urine specimen obtained by clean catch procedure / Unknown Non-blood Collection / Unknown 01/11/2025 11:15 AM EDT 01/11/2025 1:52 PM EDT us Taco Bravo MD LAB MICROBIOLOGY - GENERAL ORDER NIVIA Final Result [facility] [address] [place] [address], documented in this encounter Visit Diagnoses Diagnosis Urinary tract infection, site not specified Gross hematuria documented in this encounter Care Teams Program Instructor Relationship Specialty Start Date End Date Ryan Ku MD [address] [place] [address] PCP - General Internal Medicine 12/22/24 documented as of this encounter
--- OUTSIDE RECORDS SUMMARY | 2025-03-10 18:35 | XMS_ITS | Clinical Summary ---
Author Organization [address] Address [address] [place] [phone] Phone Care Team Providers Care Impregnator Carbon Products Name Role Phone Ryan Ku MD Primary Care Provider [phone] Encounters Date Type Department Care Team Description 01/19/2025 Lab Requisition [facility] [address] [place] [address] Taco Bravo Gross hematuria 01/11/2025 Lab Requisition [facility] [address] [place] [address] Taco Bravo MD Urinary tract [...] Depression Screening 04/22/2024 COVID-19 Vaccine (1 - 2024-2 6 season) 2024 Influenza Vaccine (#1) 2024 RSV [...] Final Result [facility] [address] [place] [address], [place] [phone] * Non-gynecologic cytology (01/11/2025 12:00 AM EDT) Final Diagnosis A. Urine, Voided, [id number]: Negative for high grade urothelial carcinoma. Results [...] HOSPITAL LAB Gross Description A. Urine, Voided, [id number]: Received one ThinPrep slide for cytology and one ThinPrep slide for UroVysion FISH 02/04/2025 4:09 PM T [facility] Disclaimer Unless otherwise specified, all tissue is 10% NB formalin fixed and paraffin embedded. Technical pathology services provided by [facility] at [address] [place] [address] [address], [place] [address] (CLIA #[id number]/Susie Enrique MD, Complaint Evaluation Officer) 02/04/2025 4:09 PM EDT [facility] Urine Urine specimen from urethra / Unknown 01/11/2025 01/19/2025 10:35 AM EDT us Taco Shelly LAB CYTOLOGY ORDERABLES Final Re sult [facility] ([facility]) [facility] [address] [place] [address], [place] [phone] from Last 3 Months Insurance MEDICAID - [place] MEDICARE AETNA Care Teams Impregnator Carbon Products Relationship Specialty Start Date End Date Ryan Ku MD [address] [place] [address] PCP - General Internal Medicine 12/22/24
--- OUTSIDE RECORDS SUMMARY | 2025-03-10 18:35 | XMS_ITS | Encounter Summary ---
Author Organization [email or web address] Address [address] [place] [address] Care Team Providers Care Chief Innovation Officer Name Role Phone Ryan Ku MD Primary Care Provider [phone] Encounter Details Date Type Department Care Team (Late st Contact Info) Description 01/19/2025 Lab Requisition [facility] - Main Lab [address] [place] [phone] Taco Bravo [address] [place], [place] [phone] Gross hematuria Social History Tobacco Use Types [...] AM EDT) Final Diagnosis A. Urine, Voided, [id number]: Negative for high grade urothelial carcinoma. Results of UroVysion fluorescence in situ hybridization (FISH) testing: CEP3: Normal CEP7: Normal CEP17: Normal LSI 9p21: Normal Interpretation: Normal profile Controls stained appropriately. Note: The results are intended as a screening device and should be interpreted in association with other clinical and pathological findings. 02/04/2025 4:09 PM EDT [facility] at 1609 EDT Specimen A Adequacy Satisfactory for evaluation 02/04/2025 4:09 PM EDT [facility] Clinical Information R31.0 Gross hematuria Urine Cytology/FISH (now) 02/04/2025 4:09 PM EDT [facility] Gross Description A. Urine, Voided, [id number]: Received one ThinPrep slide for cytology and one ThinPrep slide for UroVysion FISH 02/04/2025 4:09 PM EDT [facility] Disclaimer Unless otherwise specified, all tissue is 10% NB formalin fixed and paraffin embedded. Technical pathology services provided by [facility] at [address], [place] [address] (CLIA #[id number]/Susie Enrique MD, Transport Tech) 02/04/2025 4:09 PM EDT [facility] Urine Urine specimen from urethra / Unknown 01/11/2025 01/19/2025 10:35 AM EDT us Taco Bravo LAB CYTOLOGY ORDERABLES Final Re sult [facility]) [facility] [address] [place] [address], documented in this encounter Visit Diagnoses Diagnosis Gross hematuria documented in this encounter Care Teams Chief Innovation Officer Relationship Specialty Start Date End Date Ryan Ku MD [address] [place] [address] PCP - General Internal Medicine 12/22/24 documented as of this encounter
== END 2025-03-10 10:34 | disposition home or self-care (01) ==
LOC: HO.HMCFMS 09:56
PROVIDERS: PCP Student in an Organized Health Care Education/Training Program; Visit Provider Student in an Organized Health Care Education/Training Program
DX: I10 Essential (primary) hypertension (principal); E78.5 Hyperlipidemia, unspecified; F17.200 Nicotine dependence, unspecified, uncomplicated; E53.8 Deficiency of other specified B group vitamins; Z23 Encounter for immunization

== ENCOUNTER → 2025-03-10 09:55 | Outpatient (BNVA) | payer OTHER, MEDICAID, SELFPAY | PROVIDERS: PCP Internal Medicine; Visit Provider Student in an Organized Health Care Education/Training Program | DX: I10 Essential (primary) hypertension (principal); E78.5 Hyperlipidemia, unspecified; E53.8 Deficiency of other specified B group vitamins; F17.210 Nicotine dependence, cigarettes, uncomplicated; Z28.21 Immunization not carried out because of patient refusal; Z13.31 Encounter for screening for depression; Z13.39 Encounter for screening examination for other mental health and behavioral disorders | CPT/HCPCS: 90471; 96127 ==

== ENCOUNTER 2025-03-26 10:43 | Outpatient (AMB) | payer OTHER, MEDICAID, SELFPAY ==
--- NOTE | 2025-03-26 10:46 | A.OFFPC_ITS ---
Vital Signs 03/26/25 10:51 Height 5 ft 9 in Weight 165 lb 4 oz BMI 24.4 BP 158/82 H Blood Pressure Location Lt brachial Position Sitting Respiration 20 Pulse 64 Pulse Source Pulse Oximeter Temp 97.7 F Temp Source Oral Pulse Oximetry (%) 100 Oxygen Delivery Method Room Air Intake Visit Reasons: 2 week follow up Intake Note: Patient present for blood pressure follow up. 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 Accompanied by: Spouse Allergies levofloxacin (LEVOFLOXACIN) Allergy (Mild, Verified 03/26/25 10:50) hives Penicillins (PENICILLINS) Allergy (Mild, Verified 03/26/25 10:50) RASH Sulfa (Sulfonamide Antibiotics) (SULFA (SULFONAMIDE ANTIBIOTICS)) Allergy (Mild, Verified 03/26/25 10:50) SKIN PEELS Tobacco use date assessed: 03/10/25 Fall risk assessment: No Falls in past year Last assessed Fall Risk: 03/26/25 Dental Screening Dental Screen Date: 03/10/25 HPI HPI Comments History of Present Illness Details History of Present Illness The patient is a 64 year old male presenting with follow-up for management of hypertension. Hypertension: The patient has been monitoring his blood pressure at home, with readings ranging from a low of 115 to a high of 158. Most readings have been within the 120-130 range, although some higher readings, such as 151 and 144, have been noted. Colon cancer screening: The patient has deferred his colon cancer screening. He delayed the procedure because of his daughter's birthday and a surprise visit from his sister, whom he had not seen in over 20 years. Social History: - The patient has been busy with family, including his daughter's birthday and a visit from his sister from [place], whom he has not seen in over 20 years. - He also has another sister who is a nu rse. Diagnostic Results: - Home Blood Pressure Monitoring: Readin gs range from a low of 115 to a high of 158, with most readings in the 120-130 range. Past Medical History - Hypertension Health Maintenance - Home blood pressure monitoring is ongo ing. - Colon cancer screening has been deferr ed by the patient. [facility] Medical History Vitamin B12 deficiency Hypertension Hyperlipidemia Tobacco use disorder Bladder outlet obstruction Erectile dysfunction due to arterial insufficiency Urethral stricture Surgical History History of surgery Family History Father No problems noted. Mother Hypoglycemia Asthma Social History (Updated 03/26/25 @ 10:51 by Eugene Barrientos CMA) Household Members: Spouse and Children Housing: House Alcohol intake: current Patient Tobacco Use Status: Current everyday Tobacco user Cigarettes Per Day: 20 Years Smoked: 45 e-Cigarette/Vaping Use: Never Used Substance Use Type: Marijuana service: No Current occupational status: retired Cognitive needs: No Hearing needs: No Vision needs: No Questionnaire PHQ-9 Over the last 2 weeks, how often have you been bothered by any of the following problems? 1. Little interest or pleasure in doing things: not at all 2. Feeling down, depressed, or hopeless: several days 3. Trouble falling or staying asleep, or sleeping too much: several days 4. Feeling tired or having little energy: several days 5. Poor appetite or overeating: not at all 6. Feeling bad about yourself - or that you are a failure or have let yourself or your family down: several days 7. Trouble concentrating on things, such as reading the newspaper or watching television: not at all 8. Moving or speaking so slowly that other people could have noticed. Or the opposite - being so fidgety or restless that you have been moving around a lot more than usual: not at all 9. Thoughts that you would be better off or of hurting yourself in some way: not at all Total score: 4 Depression Screening Interpretation: Negative Depression Screening Done: Yes 98088 - PHQ-9 Billing: Yes Source: Developed by Drs. Pro Amanda, Shoshana Story, Fidencio Francois and colleagues, with an educational lizz from [employer]. Thrive Questionnaire Date Thrive assessed: 02/23/25 I am a: Patient What is your living situation today?: I have a steady place to live Within the past 12 months, did the food you bought not last and you didn't have the money to get more?: Never true Within the past 12 months, did you worry whether your food would run out before you got money to buy more?: Never true Do you have trouble paying for medicines?: No Do you have trouble getting transportation to medical appointments?: No Do you have trouble paying your heating and electricity bill?: Yes Do you have trouble taking care of your child, family member or friend?: No Are you currently unemployed and looking for a job?: No Are you interested in more education?: No Please select the resources that you would like help with: Utilities Currently or been in a relationship where the following occur: No concerns reported THRIVE Score: 1 AUDIT C Alcohol Use Questionnaire (AUDIT-C) 1. How often do you have a drink containing alcohol?: Monthly or less 2. How many drinks containing alcohol do you have on a typical day when you are drinking?: 1 or 2 3. How often do you have six or more drinks on one occasion?: Never Total Score: 1 EMMA-7 AMB Questionnaire EMMA-7 Date EMMA - 7 assessed: 03/10/25 Feeling nervous, anxious, or on edge: 1 = Several days Not being able to stop or control worryin = Several days Worrying too much about different things: 0 = Not at all Trouble relaxin = Not at all Being so restless that it is hard to sit still: 1 = Several days Becoming easily annoyed or irritable: 0 = Not at all Feeling afraid as if something awful might happen: 1 = Several days Total EMMA-7 score (0-4 normal; 5-9 mild; 10-14 moderate; 15-21 severe): 4 Source: Developed by Drs. Pro Amanda, Shoshana Story, Fidencio Francois and colleagues, with an educational lizz from [employer]. EMMA-7 Assessment Billing EMMA-7 Assessment Tool: EMMA-7 Assessment 62354 Review of Systems Narrative Review of Systems - General: Denies any new concerns. 10-point ROS reviewed and negative except as noted in HPI Physical exam (Primary Care) Vital Signs: Last Vital Signs Temp 97.7 F 03/26/25 10:51 Pulse 64 03/26/25 10:51 Resp 20 03/26/25 10:51 BP 158/82 H 03/26/25 10:51 Pulse Ox 100 03/26/25 10:51 Oxygen Delivery Method Room Air 03/26/25 10:51 BMI result Body Mass Index 24.4 Tobacco/Smoking Status: Tobacco use Status Tobacco use date assessed 03/10/25 03/26/25 10:46 Patient Tobacco Use Status Current everyday Tobacco 03/26/25 10:51 e-Cigarette/Vaping Use Never Used 03/26/25 10:51 PHQ-9: PHQ-9 Score PHQ-9: Total score 4 03/26/25 10:56 Depression Screening Interpretation: Negative Thrive Assessment: Date of Thrive Assessment Date Thrive assessed 02/23/25 03/26/25 10:46 Currently or been in a relationship where the following occur: No concerns reported Narrative Physical Exam General: Well-appearing, in no acute distress. Vital signs: Blood pressure ranges from 115 to 158, mostly within the 120 to 130 range. HEENT: Normocephalic, atraumatic. PERRLA, EOMI. Conjunctiva clear, sclera anicteric. Oropharynx clear, mucous membranes moist. TMs intact bilaterally. Neck: Supple, no lymphadenopathy, no thyromegaly, no JVD or carotid bruits. Cardiovascular: RRR, normal S1/S2, no murmurs, rubs, or gallops. Peripheral pulses 2+ and symmetric. No edema. Respiratory: Lungs clear to auscultation bilaterally, no wheezes, rales, or rhonchi. Normal effort. Abdomen: Soft, non-tender, non-distended. Normoactive bowel sounds. No hepatosplenomegaly, no masses. MSK: Full range of motion, no joint swelling or deformity. Normal gait. Skin: Warm, dry, intact. No rashes, lesions, or pallor. Neuro: Alert and oriented x3. Cranial nerves II-XII intact. Strength 5/5 throughout. Sensation intact. Reflexes 2+ symmetric. Normal coordination and gait. Psych: Appropriate mood and affect. Normal judgment and insight. Coding Level of Care Code Est Pt Level 3 (84623) Diagnoses Hypertension I10 Tobacco use disorder F17.200 Additional Codes EMMA-7 Assessment Billing - EMMA-7 Assessment Tool: EMMA-7 Assessment 44786 ([id number]) PHQ-9 - 62788 - PHQ-9 Billing: Yes ([id number]) Assessment & Plan Assessment & Plan (1) Hypertension: Code(s): I10 - Essential (primary) hypertension Category: Medical (2) Tobacco use disorder: Code(s): F17.200 - Nicotine dependence, unspecified, uncomplicated Category: Medical Plan Consent Patient was informed and verbally consented to the use of an ambient scribe for clinic note documentation during this visit. Plan 1. Hypertension - Continue home blood pressure monitoring. - The goal is to maintain blood pressure readings below 130 mmHg. - Schedule a follow-up appointment in one week to review blood pressure trends. 2. Colon Cancer Screening - The patient has deferred his colon cancer screening due to recent family events. - The procedure will be rescheduled for a later date. Discussion Notes I reviewed the patient's home blood pressure logs, which show overall good control, with most readings in the 120-130 range, though occasional spikes up to 158 were noted. I advised him to continue monitoring his blood pressure to get into the habit, with a target of keeping it below 130. We agreed on a follow-up appointment in one week. The patient also informed me that he has not yet completed his colon cancer screening due to family events, which I acknowledged was acceptable and could be rescheduled. Patient Instructions - Continue to take your blood pressure at home. - Your goal is to keep your blood pressure below 130. - Please return for a follow-up visit in one week. - You can reschedule your colon screening for a later time. Medical Decision Making The patient is a 64-year-old male here for a follow-up on his hypertension. His home blood pressure logs were reviewed and showed generally good control, with readings mostly in the 120-130 mmHg range, though some higher readings up to 158 mmHg were noted. The plan is to continue home blood pressure monitoring to establish a more consistent pattern and to reinforce the treatment goal of maintaining readings below 130 mmHg. A follow-up visit in one week was scheduled to reassess his progress. The patient also deferred his scheduled colon cancer screening due to personal family commitments; this is clinically acceptable, and the procedure can be rescheduled at his convenience. Total Time Statement 20 min Total time spent caring for the patient today includes pre-visit chart review, documentation, review of laboratory and diagnostic imaging results, medication reconciliation, medically necessary evaluation, counseling on diagnoses, care coordination, ordering appropriate tests and medications, review of tests performed by other providers, reporting test results to the patient, and communication with other healthcare providers.
[2025-03-26 10:51] VITALS: BP 158/82; PULSE 64; RESP 20; TEMP 36.5; O2SAT 100; BMI 24.4
--- OUTSIDE RECORDS SUMMARY | 2025-03-26 12:51 | XMS_ITS | Clinical Summary ---
Author Organization [address] [facility]jillian[facility] Address [address] [place] [phone] Phone Care Team Providers Care Can Machine Operator Name Role Phone Ryan Ku MD Primary Care Provider [phone] Encounters Date Type Department Care Team Description 01/19/2025 Lab Requisition [facility] Lab [address] [place] [address] Taco Bravo Gross hematuria 01/11/2025 Lab Requisition [facility] Lab [address] [place] [address] Taco Bravo MD Urinary tract [...] Urine No growth 01/12/2025 10:29 AM EDT [facility] Urine Urine specimen obtained by clean catch procedure / Unknown Non-blood Collection / Unknown 01/11/2025 11:15 AM EDT 01/11/2025 1:52 PM EDT us Taco Bravo MD LAB MICROBIOLOGY - GENERAL ORDER NIVIA Final Result [facility] [address] [place] [address], [place] [phone] * Non-gynecologic cytology (01/11/2025 12:00 AM EDT) Final Diagnosis A. Urine, Voided, [id number]: Negative for high grade urothelial carcinoma. Results of UroVysion fluorescence in situ hybridization (FISH) testing: CEP3: Normal CEP7: Normal CEP17: Normal LSI 9p21: Normal Interpretation: Normal profile Controls stained appropriately. Note: The results are intended as a screening device and should be interpreted in association with other clinical and pathological findings. 02/04/2025 4:09 PM EDT [facility] at 1609 EDT Specimen A Adequacy Satisfactory for evaluation 02/04/2025 4:09 PM T [facility] Clinical Information R31.0 Gross hematuria Urine Cytology/FISH (now) 02/04/2025 4:09 PM T [facility] Gross Description A. Urine, Voided, [id number]: Received one ThinPrep slide for cytology and one ThinPrep slide for UroVysion FISH 02/04/2025 4:09 PM T [facility] Disclaimer Unless otherwise specified, all tissue is 10% NB formalin fixed and paraffin embedded. Technical pathology services provided by [facility] at [address] [place] [address] [address], [place] [address] (CLIA #[id number]/Susie Enrique MD, Traditional Maori Health Practitioner) 02/04/2025 4:09 PM EDT [facility] Urine Urine specimen from urethra / Unknown 01/11/2025 01/19/2025 10:35 AM EDT us Taco Shelly LAB CYTOLOGY ORDERABLES Final Re sult [facility]) [facility] [address] [place] [address], [place] [phone] from Last 3 Months Insurance MEDICA[place] - [place] MEDICARE AETNA Care Teams Can Machine Operator Relationship Specialty Start Date End Date Ryan Ku MD [address] [place] [address] PCP - General Internal Medicine 12/22/24
--- OUTSIDE RECORDS SUMMARY | 2025-03-26 12:51 | XMS_ITS | Encounter Summary ---
Author Organization [employer] Address [address] [place] [address] Care Team Providers Care Development Intern Name Role Phone Ryan Ku MD Primary Care Provider [phone] Encounter Details Date Type Department Care Team (Late st Contact Info) Description 01/19/2025 Lab Requisition [facility] - Main Lab [address] [place] [phone] Taco Bravo [address] [place], [place] [phone] Gross hematuria Social History Tobacco Use Types [...] AM EDT) Final Diagnosis A. Urine, Voided, [id number]: Negative for high grade urothelial carcinoma. Results of UroVysion fluorescence in situ hybridization (FISH) testing: CEP3: Normal CEP7: Normal CEP17: Normal LSI 9p21: Normal Interpretation: Normal profile Controls stained appropriately. Note: The results are intended as a screening device and should be interpreted in association with other clinical and pathological findings. 02/04/2025 4:09 PM EDT [facility] at 1609 EDT Specimen A Adequacy Satisfactory for evaluation 02/04/2025 4:09 PM EDT [facility] Clinical Information R31.0 Gross hematuria Urine Cytology/FISH (now) 02/04/2025 4:09 PM EDT [facility] Gross Description A. Urine, Voided, [id number]: Received one ThinPrep slide for cytology and one ThinPrep slide for UroVysion FISH 02/04/2025 4:09 PM EDT [facility] Disclaimer Unless otherwise specified, all tissue is 10% NB formalin fixed and paraffin embedded. Technical pathology services provided by [facility] at [address], [place] [address] (CLIA #[id number]/Susie Enrique MD, Beam Sealer) 02/04/2025 4:09 PM EDT [facility] Urine Urine specimen from urethra / Unknown 01/11/2025 01/19/2025 10:35 AM EDT us Taco Bravo LAB CYTOLOGY ORDERABLES Final Re sult [facility] [address] [place] [address], documented in this encounter Visit Diagnoses Diagnosis Gross hematuria documented in this encounter Care Teams Development Intern Relationship Specialty Start Date End Date Ryan Ku MD [address] [place] [phone] PCP - General Internal Medicine 12/22/24 documented as of this encounter
--- OUTSIDE RECORDS SUMMARY | 2025-03-26 12:51 | XMS_ITS | Encounter Summary ---
Author Organization [employer] Address [address] [place] [address] Care Team Providers Care Electromedical Service Engineer Name Role Phone Ryan Ku MD Primary Care Provider [phone] Encounter Details Date Type Department Care Team (Late st Contact Info) Description 01/11/2025 Lab Requisition [facility] - Main Lab [address] [facility] [place] [phone] Taco Bravo MD [address] [facility] [address] [place] [address] Urinary tract infection, site not specified; Gross [...] Urine No growth 01/12/2025 10:[address] [facility] Urine Urine specimen obtained by clean catch procedure / Unknown Non-blood Collection / Unknown 01/11/2025 11:15 AM EDT 01/11/2025 1:52 PM EDT us Taco Bravo MD LAB MICROBIOLOGY - GENERAL ORDER NIVIA Final Result [facility] [address] [place] [address], documented in this encounter Visit Diagnoses Diagnosis Urinary tract infection, site not specified Gross hematuria documented in this encounter Care Teams Electromedical Service Engineer Relationship Specialty Start Date End Date Ryan Ku MD [address] [place] [id number] PCP - General Internal Medicine 12/22/24 documented as of this encounter
== END 2025-03-26 11:03 | disposition home or self-care (01) ==
LOC: HO.HMCFMS 10:44
PROVIDERS: Visit Provider Student in an Organized Health Care Education/Training Program
DX: I10 Essential (primary) hypertension (principal); F17.200 Nicotine dependence, unspecified, uncomplicated

== ENCOUNTER → 2025-03-26 10:43 | Outpatient (BNVA) | payer OTHER, MEDICAID, SELFPAY | PROVIDERS: Visit Provider Student in an Organized Health Care Education/Training Program | DX: I10 Essential (primary) hypertension (principal); F17.200 Nicotine dependence, unspecified, uncomplicated; Z71.6 Tobacco abuse counseling | CPT/HCPCS: 96127 ==

== ENCOUNTER 2025-03-30 08:43 | Outpatient (AMB) | payer OTHER, MEDICAID, SELFPAY ==
[2025-03-30 09:01] VITALS: BP 152/72; PULSE 62; TEMP 36.3; O2SAT 100; BMI 25.0
--- NOTE | 2025-03-30 09:01 | MHC.PC.OV ---
Vital Signs 03/30/25 09:01 Height 5 ft 9 in Weight 169 lb 4 oz BMI 25.0 BP 152/72 H Blood Pressure Location Lt brachial Position Sitting Pulse 62 Pulse Source Pulse Oximeter Temp 97.4 F Temp Source Oral Pulse Oximetry (%) 100 Oxygen Delivery Method Room Air Intake Visit Reasons: rash, hives Intake Note: Patient present for blood pressure follow up. Community Association Manager Required: No Accompanied by: Spouse Allergies levofloxacin (LEVOFLOXACIN) Allergy (Mild, Verified 03/30/25 18:50) hives Penicillins (PENICILLINS) Allergy (Mild, Verified 03/30/25 18:50) RASH Sulfa (Sulfonamide Antibiotics) (SULFA (SULFONAMIDE ANTIBIOTICS)) Allergy (Mild, Verified 03/30/25 18:50) SKIN PEELS lisinopril Adverse Reaction (Intermediate, Verified 03/30/25 18:50) Hives Medication List - Last Reconciled 03/30/25 by Seth Sargent MD amlodipine 10 mg PO DAILY atorvastatin (Lipitor) 20 mg PO BEDTIME [blood pressure As directed] hydrocortisone 1% 1 appl topical BID PRN mecobalamin (vitamin B12) 1,000 mcg sublingual BEDTIME omeprazole 20 mg PO DAILY Tobacco use date assessed: 03/30/25 Fall risk assessment: No Falls in past year Last assessed Fall Risk: 03/26/25 Dental Screening Dental Screen Date: 03/30/25 Did you have a dental visit in the last 12 months?: No Did you have a dental problem in the last 6 months where you did not have access to dental care?: No Was dental information given to patient?: No HPI HPI Comments History of Present Illness Details History of Present Illness The patient is a 64-year-old male presenting with a rash, hypertension, and heartburn. Adverse Reaction to Lisinopril: The patient reports a new rash on his legs and arm, which started the day before his last visit. The rash is sometimes pruritic and has shown signs of improvement since he discontinued his lisinopril medication last night. The patient suspects this skin reaction is associated with his use of lisinopril. Essential Hypertension: The patient has a longstanding history of hypertension, which was being managed with lisinopril. Following the onset of a rash, the patient has not taken his lisinopril since last night. His blood pressure reading today was noted to be 153. Gastroesophageal Reflux Disease: The patient reports experiencing heartburn for the past two days. He has a known history of heartburn typically managed with Tums or milk. Hypercholesterolemia: The patient is currently managing his hypercholesterolemia with atorvastatin. Surgical History: - No surgical history reported. Medications: - Atorvastatin for hypercholesterolemia. - Tums or milk as needed for heartburn relief. Social History: - The patient reported increased dietary consumption during the holidays, including cakes and roasted steak made by his daughter. Family History: - No family history information provided. Diagnostic Results: - Labs: Vitamin B12 level is low at 337 pg/mL (normal range 200-700 pg/mL). - Labs: Hemoglobin is slightly low at 13.6 g/dL (normal range 14-15 g/dL). Past Medical History - Hypertension - History of heartburn - Hypercholesterolemia Health Maintenance - Encouraged completion of Cologuard test for colon cancer screening. [facility] Medical History (Updated 03/30/25 @ 18:52 by Seth Sargent MD) GERD (gastroesophageal reflux disease) Adverse effect of lisinopril Vitamin B12 deficiency Hypertension Hyperlipidemia Tobacco use disorder Bladder outlet obstruction Erectile dysfunction due to arterial insufficiency Urethral stricture Surgical History History of surgery Family History Father No problems noted. Mother Hypoglycemia Asthma Social History (Updated 03/26/25 @ 10:51 by Eugene Barrientos CMA) Household Members: Spouse and Children Housing: House Alcohol intake: current Patient Tobacco Use Status: Current everyday Tobacco user Cigarettes Per Day: 20 Years Smoked: 45 Packs per year/per ci.00 e-Cigarette/Vaping Use: Never Used Substance Use Type: Marijuana service: No Current occupational status: retired Cognitive needs: No Hearing needs: No Vision needs: No Questionnaire Thrive Questionnaire Date Thrive assessed: 02/23/25 I am a: Patient What is your living situation today?: I have a steady place to live Within the past 12 months, did the food you bought not last and you didn't have the money to get more?: Never true Within the past 12 months, did you worry whether your food would run out before you got money to buy more?: Never true Do you have trouble paying for medicines?: No Do you have trouble getting transportation to medical appointments?: No Do you have trouble paying your heating and electricity bill?: Yes Do you have trouble taking care of your child, family member or friend?: No Do you have trouble with day-to-day activities such as bathing, preparing meals, shopping, managing finances, etc.?: No Are you currently unemployed and looking for a job?: No Are you interested in more education?: No Please select the resources that you would like help with: Utilities Currently or been in a relationship where the following occur: No concerns reported THRIVE Score: 1 EMMA-7 AMB Questionnaire EMMA-7 Date EMMA - 7 assessed: 03/10/25 Source: Developed by Drs. Pro Amanda, Shoshana Story, Fidencio Francois and colleagues, with an educational lizz from [employer]. Review of Systems Narrative Review of Systems - Integumentary: Reports rash on legs and arm that is sometimes pruritic. - Gastrointestinal: Reports heartburn for the past two days. - Musculoskeletal: Denies muscle or joint pain. 10-point ROS reviewed and negative except as noted in HPI Physical exam (Primary Care) Vital Signs: Last Vital Signs Temp 97.4 F 03/30/25 09:01 Pulse 62 03/30/25 09:01 BP 152/72 H 03/30/25 09:01 Pulse Ox 100 03/30/25 09:01 Oxygen Delivery Method Room Air 03/30/25 09:01 BMI result Body Mass Index 25.0 Tobacco/Smoking Status: Tobacco use Status Tobacco use date assessed 03/30/25 03/30/25 09:04 Patient Tobacco Use Status Current everyday Tobacco 03/30/25 09:04 e-Cigarette/Vaping Use Never Used 03/30/25 09:04 Thrive Assessment: Date of Thrive Assessment Date Thrive assessed 02/23/25 03/30/25 09:04 Currently or been in a relationship where the following occur: No concerns reported Narrative Physical Exam General: Well-appearing, in no acute distress. Vital signs: Blood pressure 153. HEENT: Normocephalic, atraumatic. PERRLA, EOMI. Conjunctiva clear, sclera anicteric. Oropharynx clear, mucous membranes moist. TMs intact bilaterally. Neck: Supple, no lymphadenopathy, no thyromegaly, no JVD or carotid bruits. Cardiovascular: RRR, normal S1/S2, no murmurs, rubs, or gallops. Peripheral pulses 2+ and symmetric. No edema. Respiratory: Lungs clear to auscultation bilaterally, no wheezes, rales, or rhonchi. Normal effort. Abdomen: Soft, non-tender, non-distended. Normoactive bowel sounds. No hepatosplenomegaly, no masses. MSK: Full range of motion, no joint swelling or deformity. Normal gait. Skin: Warm, dry, intact. Occasional itching on legs, scant round lesions on bilat arms and legs, lesions, or pallor. Neuro: Alert and oriented x3. Cranial nerves II-XII intact. Strength 5/5 throughout. Sensation intact. Reflexes 2+ symmetric. Normal coordination and gait. Psych: Appropriate mood and affect. Normal judgment and insight. Coding Level of Care Code Est Pt Level 3 (37399) Diagnoses Hypertension I10 Tobacco use disorder F17.200 Adverse effect of lisinopril T46.4X5A GERD (gastroesophageal reflux disease) K21.9 Hyperlipidemia E78.5 Assessment & Plan Assessment & Plan (1) Hypertension: Code(s): I10 - Essential (primary) hypertension Category: Medical (2) Tobacco use disorder: Code(s): F17.200 - Nicotine dependence, unspecified, uncomplicated Category: Medical (3) Adverse effect of lisinopril: Code(s): T46.4X5A - Adverse effect of sarsrdjrngu-slxtjklxsn-gtrldr inhibitors, initial encounter Category: Medical (4) GERD (gastroesophageal reflux disease): Code(s): K21.9 - Gastro-esophageal reflux disease without esophagitis Category: Medical (5) Hyperlipidemia: Code(s): E78.5 - Hyperlipidemia, unspecified Category: Medical Plan Consent The patient provided verbal consent for treatment during the visit, including the decision to discontinue lisinopril due to suspected adverse reaction and initiate amlodipine for blood pressure management. I discussed the potential side effects of amlodipine. Consent was also obtained for the initiation of omeprazole for heartburn, with instructions for potential dosage adjustment. The patient acknowledged understanding of the instructions and treatment plans discussed. Patient was informed and verbally consented to the use of an ambient scribe for clinic note documentation during this visit. Plan 1. Adverse Reaction To Lisinopril - Discontinue lisinopril immediately due to suspected adverse reaction. - Prescribe hydrocortisone cream for the rash. - Monitor for reoccurrence of rash following discontinuation. 2. Essential Hypertension - Prescribe amlodipine 10 mg daily for hypertension management. - Patient advised about potential side effects such as ankle swelling and constipation. 3. Gastroesophageal Reflux Disease - Prescribe omeprazole 20 mg daily for heartburn management. - Instruct patient to increase dosage if symptoms persist and follow up. 4. Hypercholesterolemia - Continue atorvastatin. Monitor for rash reoccurrence after discontinuation of lisinopril. 5. Preventative Care - Strongly encourage completion of Cologuard test for colon cancer screening. Discussion Notes I reviewed with the patient that the new rash is likely a side effect of lisinopril, a common skin reaction. We decided to discontinue lisinopril and start amlodipine for hypertension management, with counseling regarding its potential side effects such as ankle swelling. For heartburn, I prescribed omeprazole 20 mg and advised an increase to 40 mg if symptoms persist. I reminded the patient of the importance of completing the Cologuard test for colorectal cancer screening. I also addressed his dietary habits and suggested improvements for his slightly low B12 and hemoglobin levels. The conversation included a discussion about referral to a medical weight loss clinic for ongoing weight management support, which the patient accepted. Patient Instructions - Stop taking lisinopril. - Start taking amlodipine 10 mg daily. - Continue atorvastatin for cholesterol. - Apply hydrocortisone cream to rash areas as needed. - Take omeprazole 20 mg daily for heartburn. Increase dose if needed. - Complete and mail the Cologuard test. Medical Decision Making The patient is a 64-year-old male with a new rash likely due to an adverse reaction to lisinopril. Given the improvement in symptoms after halting the medication, I recommended discontinuing lisinopril, and initiating amlodipine to manage his hypertension. Although atorvastatin-induced rash is less likely because its common side effects are musculoskeletal, continued monitoring is advised. For his heartburn, the patient is starting omeprazole with the option to increase the dose if required. The patient???s low vitamin B12 and hemoglobin levels suggest nutritional deficiencies, warranting dietary adjustments. The health maintenance plan includes completing a Cologuard test for colorectal cancer screening. A referral to the medical weight loss clinic was made to support the patient's weight management goals. Total Time Statement 20 min Total time spent caring for the patient today includes pre-visit chart review, documentation, review of laboratory and diagnostic imaging results, medication reconciliation, medically necessary evaluation, counseling on diagnoses, care coordination, ordering appropriate tests and medications, review of tests performed by other providers, reporting test results to the patient, and communication with other healthcare providers. Medications: New omeprazole 20 mg PO DAILY 30 caps 0RF amlodipine 10 mg PO DAILY 90 tabs 0RF hydrocortisone 1% 1 appl topical BID PRN 28.4 grams 0RF skin irritation Discontinued lisinopril Discontinued Reason: Doctor's Order 10 mg PO DAILY 30 tabs 0RF I10 - Essential (primary) hypertension
== END 2025-03-30 09:32 | disposition home or self-care (01) ==
PROVIDERS: PCP Student in an Organized Health Care Education/Training Program; Visit Provider Student in an Organized Health Care Education/Training Program
DX: I10 Essential (primary) hypertension (principal); F17.200 Nicotine dependence, unspecified, uncomplicated; T46.4X5A Adverse effect of angiotensin-converting-enzyme inhibitors, initial encounter; K21.9 Gastro-esophageal reflux disease without esophagitis; E78.5 Hyperlipidemia, unspecified